=== PATIENT | female | born 1975 ===

== ENCOUNTER 2017-05-14 16:04 | Emergency (ER) | payer MEDICAID ==
[2017-05-14 16:18] VITALS: BP 112/65; PULSE 82; RESP 16; TEMP 98.2; O2SAT 99
[2017-05-14] MEDS ORDERED: Iohexol 240 (50 ml) PO ONE (16:41)
[2017-05-14] MEDS ORDERED: Sodium Chloride 0.9% 1,000 ML IV STA (16:42)
--- NOTE | 2017-05-14 16:53 | ED PDOC ---
HPI: Abdomen Time Seen by Provider: 05/14/17 16:18 Chief Complaint (Nursing): Abdominal Pain Chief Complaint (Provider): Abdominal Pain History Per: Patient History/Exam Limitations: no limitations Onset/Duration Of Symptoms: Waxing/Waning (x1 week) Current Symptoms Are (Timing): Still Present Additional Complaint(s): 41 year old female presents to the emergency department with a complaint of lower abdominal pain and cramping associated with frequency in bowel movements, bloody stools, chills, lightheadedness and generalized bodyaches (especially in bilateral arms) waxing and waning for 1 week. Denied any nausea, vomiting, diarrhea, decreased appetite, urinary complaints, vaginal bleeding or discharge. PMD: [facility] Past Medical History Reviewed: Historical Data, Nursing Documentation, Vital Signs Vital Signs: Last Vital Signs Temp 98.2 F 05/14/17 16:16 Pulse 82 05/14/17 16:16 Resp 16 05/14/17 16:16 BP 112/65 05/14/17 16:16 Pulse Ox 99 05/18/17 14:10 - Medical History PMH: No Chronic Diseases - Surgical History Surgical History: (x2) Other surgeries: tubal ligation - Family History Family History: States: No Known Family Hx - Social History Current smoker - smoking cessation education provided: Yes Alcohol: Occasional Drugs: Denies - Home Medications Home Medications: Ambulatory Orders Medication Instructions Recorded oxyCODONE/Acetaminophen [Percocet 1 ea PO Q6 #10 tab 01/19/14 5/325 mg Tab] Ibuprofen [Motrin Tab] 600 mg PO Q8 PRN #60 tab 05/14/17 - Allergies Allergies/Adverse Reactions: Allergies Allergy/AdvReac Type Severity Reaction Status Date / Time pepper Allergy DIZZINESS Uncoded 01/24/14 11:54 Review of Systems ROS Statement: Except As Marked, All Systems Reviewed And Found Negative Constitutional: Positive for: Chills, Other (body aches, majorly in b/l arms) Gastrointestinal: Positive for: Abdominal Pain (lower and crampy), Hematochezia (with frequency in BM). Negative for: Nausea, Vomiting, Diarrhea, Other ( decreased appetite) Genitourinary Female: Negative for: Dysuria, Incontinence, Hematuria, Vaginal Discharge, Vaginal Bleeding Neurological: Positive for: Dizziness (lightheaded) Physical Exam - Reviewed Nursing Documentation Reviewed: Yes Vital Signs Reviewed: Yes - Physical Exam Appears: Positive for: Non-toxic, In Acute Distress (mildly painful) Head Exam: Positive for: ATRAUMATIC, NORMOCEPHALIC Skin: Positive for: Warm, Dry ENT: Positive for: Pharynx Is (clear), Other (tacky mucous membranes) Neck: Positive for: Painless ROM, Supple Cardiovascular/Chest: Positive for: Regular Rate, Rhythm. Negative for: Murmur Respiratory: Positive for: Normal Breath Sounds. Negative for: Respiratory Distress Gastrointestinal/Abdominal: Positive for: Bowel Sounds (hyperactive), Soft, Tenderness (B/L LQ; suprapubic). Negative for: Mass, Guarding, Rebound Back: Positive for: Normal Inspection. Negative for: Decreased ROM Rectal: Positive for: Rectal Tone Is: (normal), Hemorrhoids (small and intact). Negative for: Other (fissure) Extremity: Positive for: Normal ROM. Negative for: Deformity Lymphatic: Negative for: Adenopathy Neurologic/Psych: Positive for: Alert. Negative for: Motor/Sensory Deficits - Laboratory Results Result Diagrams: 05/14/17 17:13 05/14/17 17:13 - ECG O2 Sat by Pulse Oximetry: 99 (RA) Pulse Ox Interpretation: Normal Medical Decision Making Medical Decision Making: Initial Impression: Abdominal pain; Bloody stools Differential Diagnosis: Diverticulitis; Colitis; Anemia; Enteritis Initial Plan: * Type and screen * CT ABD/pelvis with PO and IV contrast * CMP * CPK * Liase * Magnesium * Phosphorous * Urine * Urine dipstick * CBC * PTT * PT * NS 1,000ml IV per 1,000mls/hr * Omnipaque 50ml PO * Occult blood, stool 2212 CTA A/P FINDINGS Lower thorax: No pulmonary airspace consolidation or pleural fluid collection in the imaged portion of the thorax. ABDOMEN: Liver: No acute findings. Gallbladder and bile ducts: No acute findings. No radiopaque gallstones. Pancreas: No acute findings. Spleen: No acute findings. Adrenals: No acute findings. Kidneys and ureters: No acute findings. Pelvic right kidney. Stomach and bowel: No bowel wall thickening or other evident acute abnormality of the stomach, small bowel, or colon. Appendix: Normal appendix. PELVIS: Bladder: The bladder is moderately distended but otherwise normal in appearance. Reproductive: Enlarged, multi-fibroid uterus. The largest fibroid measures approximately 5 cm. An 18 mm peripherally enhancing, fluid attenuation left adnexal lesion is consistent with an ovarian corpus luteum. ABDOMEN and PELVIS: Intraperitoneal space: No free intraperitoneal fluid or air. Bones/joints: No acute findings. Moderate degenerative disc disease at L4-L5 with associated moderate bilateral neuroforaminal narrowing. Soft tissues: No acute findings. Vasculature: No acute findings. The abdominal aorta is normal in caliber. Lymph nodes: No acute findings. IMPRESSION: 1. No evident acute abnormality. 2. Non-acute findings as described above Labs demonstrate anemia (similar to previous) and no emergently significant lab abnormalities DW pt findings, who reports h/o anemia but not of fibroids. Advised [employer]ER and PMD follow up. Reasons to RTER reviewed with patient and pt stable for discharge. Scribe Attestation: Documented by Maureen Peters and Leyda Guthrie, acting as a scribe for Jessica Salas MD. Provider Scribe Attestation: All medical record entries made by the Scribe were at my direction and personally dictated by me. I have reviewed the chart and agree that the record accurately reflects my personal performance of the history, physical exam, medical decision making, and the department course for this patient. I have also personally directed, reviewed, and agree with the discharge instructions and disposition. Disposition - Clinical Impression Clinical Impression: Fibroid, Abdominal pain - Disposition [facility] ([facility] Disposition: Routine/Home Disposition Time: 22:00 Condition: IMPROVED Prescriptions: Ibuprofen [Motrin Tab] 600 mg PO Q8 PRN #60 tab PRN Reason: Pain, Moderate (4-7) Instructions: Uterine Fibroids Forms: [employer] (American) Print Language: IRISH
[2017-05-14 17:18] LABS: BASO % 0.6 % (0.0-2.0); EOS # 0.2 K/uL (0.0-0.7); EOS % 2.9 % (0.0-4.0); LYMPH # 1.9 K/uL (1.0-4.3); LYMPH % 22.4 % (20.0-40.0); MEAN CELL VOLUME 74.7 fl (81.0-99.0); MEAN CORPUSCULAR HGB CONC 32.2 g/dL (33.0-37.0); MEAN PLATELET VOLUME 7.8 fl (7.2-11.7); MONO # 0.8 K/uL (0.0-0.8); MONO % 9.7 % (0.0-10.0); NEUT # 5.3 K/uL (1.8-7.0); NEUT % 64.4 % (50.0-75.0); RBC 4.17 Mil/uL (3.80-5.20); RED CELL DISTRIBUTION WIDTH 18.4 % (11.5-14.5); WHITE BLOOD COUNT 8.3 K/uL (4.8-10.8)
[2017-05-14] MEDS ORDERED: Iohexol 240 (50 ml) ONE (17:32)
[2017-05-14 17:43] LABS: ALB/GLOB RATIO 1.2 (1.0-2.1); ALBUMIN 3.6 g/dL (3.5-5.0); ALT/SGPT 29 U/L (9-52); AST/SGOT 25 U/L (14-36); BLOOD UREA NITROGEN 15 mg/dl (7-17); GFR AFRICAN-AMERICAN > 60; GFR NON-AFRICAN AMERICAN > 60; LIPASE 69 U/L (23-300)
[2017-05-14 17:59] LABS: PARTIAL THROMBOPLASTIN TIME 29.5 Seconds (25.6-37.1); PROTHROMBIN TIME 10.5 Seconds (9.8-13.1)
[2017-05-14] MEDS ORDERED: Iohexol 300 100 ML IJ ONE (20:08)
--- NOTE | 2017-05-15 07:35 | CT ---
PROCEDURE: CT Abdomen and Pelvis with contrast HISTORY: lower abd pain and bloody stool COMPARISON: None. TECHNIQUE: Contrast dose: Radiation dose: Total exam DLP = mGy-cm. This CT exam was performed using one or more of the following dose reduction techniques: Automated exposure control, adjustment of the mA and/or kV according to patient size, and/or use of iterative reconstruction technique. FINDINGS: LOWER THORAX: Unremarkable. LIVER: Unremarkable. No gross lesion or ductal dilatation. GALLBLADDER AND BILE DUCTS: Unremarkable. PANCREAS: Unremarkable. No gross lesion or ductal dilatation. SPLEEN: Unremarkable. ADRENALS: Unremarkable. No mass. KIDNEYS AND URETERS: Ptotic Incomplete rotation of the right kidney. . No hydronephrosis. No solid mass. VASCULATURE: Unremarkable. No aortic aneurysm. BOWEL: Unremarkable. No obstruction. No gross mural thickening. APPENDIX: Normal appendix. PERITONEUM: Unremarkable. No free fluid. No free air. LYMPH NODES: Unremarkable. No enlarged lymph nodes. BLADDER: Unremarkable. REPRODUCTIVE: Leiomyomatous uterus. BONES: No acute fracture. OTHER FINDINGS: None. IMPRESSION: No acute pathology.
== END 2017-05-14 22:55 | disposition home or self-care (01) ==
LOC: H.ER 16:04
DX: D25.9 Leiomyoma of uterus, unspecified (principal); D64.9 Anemia, unspecified; F17.200 Nicotine dependence, unspecified, uncomplicated
CPT/HCPCS: 74177; 80053; 81025; 82550; 83690; 83735; 84100; 85025; 85610; 85730; 86850; 86900; 96360; 99284; G0328; J7040; Q9966; Q9967

== ENCOUNTER 2017-06-16 19:46 | Emergency (ER) | payer MEDICAID ==
[2017-06-16] MEDS ORDERED: Oxycodone/Acetaminophen 5/325 mg Tab PO ONE (21:03)
[2017-06-16] MEDS ORDERED: Lidocaine 1% Inj (20ml) IJ ONE ×2 (21:04→21:51)
[2017-06-16] MEDS ORDERED: Oxycodone/Acetaminophen 5/325 mg Tab ONE (21:09)
--- NOTE | 2017-06-16 21:09 | ED PDOC ---
HPI: Skin/Bite Injury Time Seen by Provider: 06/16/17 20:50 Chief Complaint (Nursing): Abnormal Skin Integrity Chief Complaint (Provider): abscess History Per: Patient History/Exam Limitations: no limitations Onset/Duration Of Symptoms: Days (1 week) Current Symptoms Are (Timing): Still Present Quality Of Symptoms: Painful Additional Complaint(s): 41 y/o female presents with painful lump to left vaginal area x 1 week. Denies fever, nausea/vomiting, abdominal pain, vaginal bleeding/discharge, dysuria/ hematuria. No medication taken for pain relief thus far. Past Medical History Reviewed: Historical Data, Nursing Documentation, Vital Signs Vital Signs: Last Vital Signs Temp 98.5 F 06/16/17 19:51 Pulse 78 06/16/17 19:51 Resp 16 06/16/17 19:51 BP Pulse Ox 100 06/16/17 21:50 - Medical History PMH: No Chronic Diseases - Surgical History Surgical History: (x2) - Family History Family History: States: No Known Family Hx - Living Arrangements Living Arrangements: With Family - Immunization History Hx Tetanus Toxoid Vaccination: No Hx Influenza Vaccination: No Hx Pneumococcal Vaccination: No - Home Medications Home Medications: Ambulatory Orders Medication Instructions Recorded oxyCODONE/Acetaminophen [Percocet 1 ea PO Q6 #10 tab 01/19/14 5/325 mg Tab] Ibuprofen [Motrin Tab] 600 mg PO Q8 PRN #60 tab 05/14/17 Clindamycin [Cleocin] 300 mg PO QID #27 cap 06/16/17 oxyCODONE/Acetaminophen [Percocet 1 ea PO Q6 PRN #10 tab 06/16/17 5/325 mg Tab] - Allergies Allergies/Adverse Reactions: Allergies Allergy/AdvReac Type Severity Reaction Status Date / Time pepper Allergy DIZZINESS Uncoded 06/16/17 19:51 Review of Systems ROS Statement: Except As Marked, All Systems Reviewed And Found Negative Skin: Positive for: Lesions (left vaginal lump) Physical Exam - Reviewed Nursing Documentation Reviewed: Yes Vital Signs Reviewed: Yes - Physical Exam Appears: Positive for: Well, Non-toxic, No Acute Distress Head Exam: Positive for: ATRAUMATIC, NORMAL INSPECTION, NORMOCEPHALIC Skin: Positive for: Normal Color Eye Exam: Positive for: Normal appearance ENT: Positive for: Normal ENT Inspection Cardiovascular/Chest: Positive for: Regular Rate, Rhythm Respiratory: Positive for: Normal Breath Sounds Gastrointestinal/Abdominal: Positive for: Normal Exam Pelvic Exam: Negative for: External Exam Normal (1.5cm abscess noted to left lateral labia majora with underlying firmness/erythema. No active drainage, warmth noted) Back: Positive for: Normal Inspection Extremity: Positive for: Normal ROM Neurologic/Psych: Positive for: Alert - ECG O2 Sat by Pulse Oximetry: 100 - Progress ED Course And Treament: clindamycin PO, percocet PO Area cleaned with alcohol pad 18gauge needle used to extract small amount of purulent drainage for relief. Bandage applied Patient educated on findings, advised warm compresses/sitz baths. Rx clindamycin, Percocet provided Follow up Grade Checker 2 days. Return precautions given Disposition - Clinical Impression Clinical Impression: Abscess - Patient ED Disposition Is Patient to be Admitted: No Counseled Patient/Family Regarding: Studies Performed, Diagnosis, Need For Followup, Rx Given - Disposition [facility]errals[facility]] Disposition: Routine/Home Disposition Time: 22:15 Condition: STABLE Prescriptions: Clindamycin [Cleocin] 300 mg PO QID #27 cap oxyCODONE/Acetaminophen [Percocet 5/325 mg Tab] 1 ea PO Q6 PRN #10 tab PRN Reason: Pain, Severe (8-10) Instructions: Skin Abscess Print Language: NIGERIAN
[2017-06-16] MEDS ORDERED: Lidocaine Hydrochloride 1% 10 ML ONE (21:10)
[2017-06-16 23:35] VITALS: BP 126/75; PULSE 80; RESP 17; TEMP 98.2; O2SAT 99
== END 2017-06-16 22:40 | disposition home or self-care (01) ==
LOC: H.ER 19:46
DX: N76.4 Abscess of vulva (principal)

== ENCOUNTER 2018-05-01 17:28 | Emergency (ER) | payer MEDICAID ==
[2018-05-01 17:41] VITALS: BP 110/71; PULSE 75; RESP 18; TEMP 98.5; O2SAT 100
--- NOTE | 2018-05-01 18:11 | ED PDOC ---
Lower Extremity Pain/Injury Time Seen by Provider: 05/01/18 17:49 Chief Complaint (Nursing): Lower Extremity Problem/Injury Chief Complaint (Provider): Lower Extremity Problem/Injury History Per: Patient History/Exam Limitations: no limitations Onset/Duration Of Symptoms: Days (2x weeks) Current Symptoms Are (Timing): Still Present Severity: Moderate Additional Complaint(s): 42 year old female with no pertinent past medical history presents to the ED for an evaluation of left knee pain with swelling ongoing for 2x weeks. Patient denies having a history of falls and knee pain in the past. Patient reports taking aleve 12x hours prior to arrival with no relief. Otherwise, patient denies having any complaints. PMD: None provided. Past Medical History Reviewed: Historical Data, Nursing Documentation, Vital Signs Vital Signs: Last Vital Signs Temp 98.5 F 05/01/18 17:39 Pulse 75 05/01/18 17:39 Resp 18 05/01/18 17:39 BP 110/71 05/01/18 17:39 Pulse Ox 100 05/01/18 17:39 MICK Report Viewed: Yes - Medical History PMH: No Chronic Diseases - Surgical History Surgical History: (x2) Other surgeries: tubal ligation - Family History Family History: States: No Known Family Hx - Social History Current smoker - smoking cessation education provided: No Alcohol: None Drugs: Denies - Immunization History Hx Tetanus Toxoid Vaccination: No Hx Influenza Vaccination: No Hx Pneumococcal Vaccination: No - Home Medications Home Medications: Ambulatory Orders Medication Instructions Recorded oxyCODONE/Acetaminophen [Percocet 1 ea PO Q6 #10 tab 01/19/14 5/325 mg Tab] Ibuprofen [Motrin Tab] 600 mg PO Q8 PRN #60 tab 05/14/17 Clindamycin [Cleocin] 300 mg PO QID #27 cap 06/16/17 oxyCODONE/Acetaminophen [Percocet 1 ea PO Q6 PRN #10 tab 06/16/17 5/325 mg Tab] Sulfamethoxazole/Trimethoprim 1 tab PO BID #14 tab 06/20/17 [Bactrim DS 800 mg-160 mg] Naproxen 375 mg PO Q8 PRN #21 tablet 05/01/18 traMADol [Ultram] 50 mg PO Q6 PRN #6 tab 05/01/18 - Allergies Allergies/Adverse Reactions: Allergies Allergy/AdvReac Type Severity Reaction Status Date / Time pepper Allergy DIZZINESS Uncoded 05/01/18 17:39 Review of Systems ROS Statement: Except As Marked, All Systems Reviewed And Found Negative Musculoskeletal: Positive for: Other (left knee pain) Physical Exam - Reviewed Nursing Documentation Reviewed: Yes Vital Signs Reviewed: Yes - Physical Exam Appears: Positive for: Well, Non-toxic, No Acute Distress Head Exam: Positive for: ATRAUMATIC, NORMOCEPHALIC Skin: Positive for: Normal Color, Warm, Dry Extremity: Positive for: Other (left knee: moderate effusion noted. ROM limited due to pain.) Neurologic/Psych: Positive for: Alert, Oriented (3x) - ECG O2 Sat by Pulse Oximetry: 100 (RA) Pulse Ox Interpretation: Normal - Progress ED Course And Treament: XRY OF KNEE: NO FX PLACED IN RACHEL WRAP TORADOL 30 MG IM X 1 DOSE Medical Decision Making Medical Decision Makin:49 Initial impression: 42 year old female with knee pain Initial plan: * XRay knee left 3 views * toradol 30 mg IM * reevaluation Scribe Attestation: Documented byChayo Camacho, acting as a scribe for Gian Maurice PA-C. Provider Scribe Attestation: All medical record entries made by the Scribe were at my direction and personally dictated by me. I have reviewed the chart and agree that the record accurately reflects my personal performance of the history, physical exam, medical decision making, and the department course for this patient. I have also personally directed, reviewed, and agree with the discharge instructions and disposition. Disposition - Clinical Impression Clinical Impression: Knee pain - Patient ED Disposition Is Patient to be Admitted: No - Disposition Referrals: Leonel Anthony III, MD [Staff Provider] - Disposition: Routine/Home Disposition Time: 18:26 Condition: FAIR Prescriptions: Naproxen 375 mg PO Q8 PRN #21 tablet PRN Reason: Pain, Moderate (4-7) traMADol [Ultram] 50 mg PO Q6 PRN #6 tab PRN Reason: Pain, Severe (8-10) Instructions: Knee Pain Forms: [facility] ED School/Work Excuse Print Language: NEPALI
--- NOTE | 2018-05-02 11:00 | RAD ---
Date of service: 05/01/2018 PROCEDURE: Left Knee Radiographs. HISTORY: Pain. COMPARISON: None. FINDINGS: BONES: No acute fracture or destructive bony lesion identified. JOINTS: Normal. No osteoarthritis. JOINT EFFUSION: None. OTHER FINDINGS: None. IMPRESSION: Unremarkable radiographs of the left knee.
== END 2018-05-01 18:33 | disposition home or self-care (01) ==
LOC: H.ER 17:28
DX: M25.562 Pain in left knee (principal)